=== PATIENT | male | born 1940 | race Caucasian/White ===

== ENCOUNTER 2016-06-08 10:36 | Outpatient (CLI) | payer MEDICARE | END 2016-06-08 10:37 | disposition home or self-care (01) | DX: R59.9 Enlarged lymph nodes, unspecified (principal) ==

== ENCOUNTER 2016-06-12 13:59 | Outpatient (CLI) | payer MEDICARE ==
[2016-06-12] MEDS ORDERED: IOPAMIDOL-300 100 ML VIAL IVP ONE (14:51)
== END 2016-06-12 14:00 | disposition home or self-care (01) ==
DX: R59.9 Enlarged lymph nodes, unspecified (principal); J43.9 Emphysema, unspecified
CPT/HCPCS: 70491; Q9967

== ENCOUNTER 2017-01-22 15:14 | Outpatient (CLI) | payer MEDICARE | END 2017-01-22 15:15 | disposition home or self-care (01) | LOC: LAB.F 15:14 | PROVIDERS: ATTEND Family Medicine | DX: M10.9 Gout, unspecified (principal) | CPT/HCPCS: 36415; 84550 ==

== ENCOUNTER 2017-07-29 08:00 | Outpatient (CLI) | payer MEDICARE ==
[2017-07-29 12:35] LABS: BILIRUBIN,URINE NEGATIVE (NEGATIVE); GLUCOSE, URINE (UA) NEGATIVE (NEGATIVE); KETONES,URINE (UA) NEGATIVE (NEGATIVE); LEUKOCYTE ESTERASE, URINE NEGATIVE (NEGATIVE); NITRITE,URINE NEGATIVE (NEGATIVE); OCCULT BLOOD,URINE TRACE-LYSE (NEGATIVE); PH,URINE 5.5 PH (5.0-7.5); PROTEIN,URINE NEGATIVE (NEGATIVE); UROBILINOGEN,URINE 0.2 (NORMAL) E.U./dL (NORMAL)
[2017-07-29 12:38] LABS: BASOPHILS % (AUTO) 0.7 %; EOSINOPHILS # (AUTO) 0.4 10^3/uL (0.0-0.7); EOSINOPHILS % (AUTO) 5.4 %; HGB - HEMOGLOBIN 14.6 g/dL (14.0-18.0); LYMPHOCYTES % (AUTO) 29.1 %; MEAN CORPUSCULAR HEMOGLOBIN 31.8 pg (27.0-31.0); MEAN CORPUSCULAR HGB CONC 34.5 g/dL (32.0-36.0); MEAN CORPUSCULAR VOLUME 92.1 fL (80.0-94.0); MEAN PLATELET VOLUME 8.7 fL (7.4-11.4); MONOCYTES # (AUTO) 0.7 10^3/uL (0.0-1.0); MONOCYTES % (AUTO) 9.4 %; NEUTROPHILS # (AUTO) 3.9 10^3/uL (1.5-6.6); NEUTROPHILS % (AUTO) 55.4 %; PLT - PLATELET COUNT 193 10^3/uL (130-450); RED BLOOD COUNT 4.59 10^6/uL (4.70-6.10); RED CELL DISTRIBUTION WIDTH 13.9 % (12.0-15.0)
[2017-07-29 13:04] LABS: BACTERIA,URINE Rare /HPF (None Seen); CLARITY,URINE CLEAR (CLEAR); RBC,URINE 0-5 /HPF (0-5); SQUAMOUS EPITHELIAL CELL,UR RARE Squamous (<= Few)
[2017-07-29 13:05] LABS: ALBUMIN 4.1 g/dL (3.2-5.5); ALBUMIN/GLOBULIN RATIO 1.3 (1.0-2.2); ALKALINE PHOSPHATASE 99 IU/L (42-121); ALT ALANINE AMINOTRANSFERASE 21 IU/L (10-60); AST ASPARTATE AMINOTRANSFERASE 22 IU/L (10-42); BILIRUBIN,TOTAL 0.5 mg/dL (0.2-1.0); BUN - BLOOD UREA NITROGEN 16 mg/dL (6-20); CALCIUM 9.2 mg/dL (8.5-10.3); CARBON DIOXIDE - CO2 27 mmol/L (21-32); CHLORIDE 105 mmol/L (101-111); CHOL/HDL RATIO 3.2 (<5.0); CHOLESTEROL 131 mg/dL; GFR - MDRD 72 (>89); GLUCOSE 116 mg/dL (70-100); HDL CHOLESTEROL 41 mg/dL; LDL CHOLESTEROL,CALCULATED 79 mg/dL; LDL/HDL RATIO 1.9 (<3.6); SODIUM 140 mmol/L (135-145); TOTAL PROTEIN 7.3 g/dL (6.7-8.2); URIC ACID 5.8 mg/dL (2.6-7.2); VLDL CHOLESTEROL 11 mg/dL
== END 2017-07-29 08:01 | disposition home or self-care (01) ==
LOC: LAB.F 08:00
PROVIDERS: ATTEND Family Medicine
DX: I50.9 Heart failure, unspecified (principal); M10.9 Gout, unspecified; N18.1 Chronic kidney disease, stage 1; E78.5 Hyperlipidemia, unspecified; I12.9 Hypertensive chronic kidney disease with stage 1 through stage 4 chronic kidney disease, or unspecified chronic kidney disease
CPT/HCPCS: 36415; 80053; 80061; 81001; 83721; 84550; 85025

== ENCOUNTER 2017-08-02 10:08 | Outpatient (CLI) | payer MEDICARE ==
[2017-08-02 18:46] LABS: HB2 TOTAL 16.7 g/dL; HEMOGLOBIN A1C 0.63 g/dL; HEMOGLOBIN A1C % 5.6 % (4.6-6.2)
== END 2017-08-02 10:09 | disposition home or self-care (01) ==
LOC: LAB.F 10:08
PROVIDERS: ATTEND Family Medicine
DX: R73.01 Impaired fasting glucose (principal)
CPT/HCPCS: 36415; 83036

== ENCOUNTER 2018-03-19 11:14 | Outpatient (CLI) | payer MEDICARE ==
--- NOTE | 2018-03-21 08:09 | XRAY Report ---
Reason: PAIN IN LEFT WRIST Procedure Date: 03/19/2018 Accession Number: [id number] / [id number] Procedure: XR - Wrist 3 View LT CPT Code: FULL RESULT: EXAM: LEFT WRIST RADIOGRAPHY EXAM DATE: 03/19/2018 11:36 AM. CLINICAL HISTORY: PAIN IN LEFT WRIST. COMPARISON: None. TECHNIQUE: 3 views. FINDINGS: Bones: Subchondral cyst distal radius. No fractures or bone lesions. Joints: Spurring first metacarpal carpal joint. No subluxations. Soft Tissues: Normal. No soft tissue swelling. IMPRESSION: Mild DJD RADIA
--- NOTE | 2018-03-21 09:09 | XRAY Report ---
Reason: PAIN IN LEFT HIP Procedure Date: 03/19/2018 Accession Number: [id number] / [id number] Procedure: XR - Hip w/Pelvis 2-3V LT CPT Code: FULL RESULT: EXAM: LEFT HIP AND PELVIS RADIOGRAPHY EXAM DATE: 03/19/2018 11:37 AM. HISTORY: PAIN IN LEFT HIP. COMPARISONS: None. TECHNIQUE: 1 view of the pelvis and 1 view of the hip. FINDINGS: Bones: No fractures or bone lesions. 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 Mild bilateral SI joint DJD. Soft Tissues: Unremarkable. IMPRESSION: 1. No acute osseous abnormality. 2. Bilateral hip joint DJD, left greater than right. If there is clinical concern for radiographically occult fracture or other pathology, MRI should be considered for further evaluation. RADIA
== END 2018-03-19 11:15 | disposition home or self-care (01) ==
LOC: DI 11:14
PROVIDERS: ATTEND Internal Medicine
DX: M19.032 Primary osteoarthritis, left wrist (principal); M16.0 Bilateral primary osteoarthritis of hip

== ENCOUNTER 2018-03-21 07:29 | Outpatient (CLI) | payer MEDICARE ==
[2018-03-21 11:32] LABS: ALBUMIN 4.4 g/dL (3.2-5.5); ALBUMIN/GLOBULIN RATIO 1.5 (1.0-2.2); ALKALINE PHOSPHATASE 101 IU/L (42-121); ALT ALANINE AMINOTRANSFERASE 28 IU/L (10-60); AST ASPARTATE AMINOTRANSFERASE 27 IU/L (10-42); BILIRUBIN,TOTAL 0.7 mg/dL (0.2-1.0); BUN - BLOOD UREA NITROGEN 20 mg/dL (6-20); CALCIUM 9.4 mg/dL (8.5-10.3); CARBON DIOXIDE - CO2 31 mmol/L (21-32); CHLORIDE 102 mmol/L (101-111); CHOL/HDL RATIO 2.9 (<5.0); CHOLESTEROL 135 mg/dL; CREATININE 1.1 mg/dL (0.6-1.2); GFR - MDRD 65 (>89); GLUCOSE 113 mg/dL (70-100); HDL CHOLESTEROL 46 mg/dL; LDL CHOLESTEROL,CALCULATED 75 mg/dL; LDL/HDL RATIO 1.6 (<3.6); SODIUM 140 mmol/L (135-145); TOTAL PROTEIN 7.4 g/dL (6.7-8.2); URIC ACID 5.8 mg/dL (2.6-7.2); VLDL CHOLESTEROL 14 mg/dL
[2018-03-21 11:38] LABS: HB2 TOTAL 17.3 g/dL; HEMOGLOBIN A1C 0.71 g/dL; HEMOGLOBIN A1C % 5.9 % (4.6-6.2)
== END 2018-03-21 07:30 | disposition home or self-care (01) ==
LOC: LAB.F 07:29
PROVIDERS: ATTEND Internal Medicine
DX: E78.5 Hyperlipidemia, unspecified (principal); R73.01 Impaired fasting glucose; M10.9 Gout, unspecified
CPT/HCPCS: 36415; 80053; 80061; 83036; 83721; 84550

== ENCOUNTER 2019-06-20 12:57 | Outpatient (CLI) | payer MEDICARE ==
--- NOTE | 2019-06-21 00:17 | XRAY Report ---
Reason: M54.9 THORACIC BACK PAIN Procedure Date: 06/20/2019 Accession Number: [id number] / [id number] Procedure: XRS - Thoracic Spine 3 View CPT Code: Final Report FULL RESULT: EXAM: THORACIC SPINE RADIOGRAPHY. EXAM DATE: 06/20/2019 01:20 PM. CLINICAL HISTORY: Lower lateral T-spine pain on the left since fall yesterday. COMPARISON: 07/30/2015 6:31 AM. TECHNIQUE: 3 views. FINDINGS: Alignment: Normal. No spondylolisthesis or scoliosis. Bones: No traumatic or destructive bony abnormality is identified. Disks: Scattered endplate spurring. Disk heights are maintained. Soft Tissues: Scarring/atelectasis at the lateral left lung base. IMPRESSION: Mild spondylosis, with no acute thoracic spine abnormalities identified. RADIA
== END 2019-06-20 12:58 | disposition home or self-care (01) ==
LOC: DI.S 12:57
PROVIDERS: ATTEND Internal Medicine
DX: M47.814 Spondylosis without myelopathy or radiculopathy, thoracic region (principal); Z91.81 History of falling
CPT/HCPCS: 72072

== ENCOUNTER 2019-07-06 08:10 | Outpatient (CLI) | payer MEDICARE ==
[2019-07-06 12:00] LABS: ALBUMIN 4.3 g/dL (3.2-5.5); ALBUMIN/GLOBULIN RATIO 1.3 (1.0-2.2); ALKALINE PHOSPHATASE 133 IU/L (42-121); ALT ALANINE AMINOTRANSFERASE 26 IU/L (10-60); AST ASPARTATE AMINOTRANSFERASE 24 IU/L (10-42); BILIRUBIN,TOTAL 0.6 mg/dL (0.2-1.0); BUN - BLOOD UREA NITROGEN 25 mg/dL (6-20); CALCIUM 9.4 mg/dL (8.5-10.3); CARBON DIOXIDE - CO2 30 mmol/L (21-32); CHLORIDE 102 mmol/L (101-111); CHOL/HDL RATIO 2.6 (<5.0); CHOLESTEROL 126 mg/dL; CREATININE 1.1 mg/dL (0.6-1.2); GFR - MDRD 64 (>89); GLUCOSE 116 mg/dL (70-100); HDL CHOLESTEROL 49 mg/dL; LDL CHOLESTEROL,CALCULATED 61 mg/dL; LDL/HDL RATIO 1.2 (<3.6); SODIUM 139 mmol/L (135-145); TOTAL PROTEIN 7.6 g/dL (6.7-8.2); VLDL CHOLESTEROL 16 mg/dL
[2019-07-06 12:01] LABS: HB2 TOTAL 15.9 g/dL; HEMOGLOBIN A1C 0.63 g/dL; HEMOGLOBIN A1C % 5.8 % (4.6-6.2)
== END 2019-07-06 08:11 | disposition home or self-care (01) ==
LOC: LAB.S 08:10
PROVIDERS: ATTEND Internal Medicine
DX: I10 Essential (primary) hypertension (principal); E78.5 Hyperlipidemia, unspecified; R73.01 Impaired fasting glucose
CPT/HCPCS: 36415; 80053; 80061; 83036; 83721